=== PATIENT | male | born 1980 | race African-American/Black ===

== ENCOUNTER 2019-01-22 02:49 | Emergency (ER) | payer OTHER ==
[~2019-01-22] VITALS: Ht 165.1 cm; Wt 68.0 kg
--- NOTE | 2019-01-22 02:55 | NUR ---
ED Nurse Note: pt brought in by [facility] from [facility], c/c etoh, pt currently intoxicated, slurred speech, demonstrating aggressive behavior such as grabbing nurse's clothes and stating "fuck you". vss, resp even and unlabored on RA, will cont monitor.
--- NOTE | 2019-01-22 03:10 | NUR ---
ED Nurse Note: pt sleeping at this time, pillow and extra warm blanket provided for comfort, will cont monitor, safety precaution in place.
--- NOTE | 2019-01-22 03:13 | Emergency Room Report ---
History of Present Illness General Chief Complaint: Alcohol Intoxication Source: EMS, Law Enforcement Present Illness HPI This a 38-year-old male brought in by EMS for alcohol intoxication. He was outside his car on the ground very intoxicated. He was brought here for chief complaint of alcohol intoxication. No trauma. Unable to get any history from this patient. Allergies: Coded Allergies: No Known Allergies (Unverified , 01/22/19) Patient History Past Medical History: see triage record, old chart reviewed, unable to obtain Past Surgical History: unable to obtain Pertinent Family History: unable to obtain Social History: Reports: alcohol use Immunizations: other Reviewed Nursing Documentation: PMH: Agreed; PSxH: Agreed Nursing Documentation-PMH Past Medical History: No Stated History Review of Systems All Other Systems: limited - Secondary to intoxication Physical Exam Vital Signs Date Time Temp Pulse Resp B/P (MAP) Pulse Ox O2 Delivery O2 Flow Rate FiO2 01/22/19 02:45 98.6 96 18 116/72 (87) 97 Room Air Vitals normal Sp02 EP Interpretation: reviewed, normal General Appearance: well appearing, no apparent distress, other - Intoxicated Head: normocephalic, atraumatic Eyes: bilateral eye PERRL, bilateral eye EOMI ENT: hearing grossly normal, normal pharynx Neck: full range of motion, supple, no meningismus Respiratory: chest non-tender, lungs clear, normal breath sounds Cardiovascular #1: regular rate, rhythm, no murmur Gastrointestinal: normal bowel sounds, non tender, no mass, no organomegaly, no bruit, non-distended Musculoskeletal: back normal Neurologic: grossly normal Psychiatric: mood/affect normal Medical Decision Making Diagnostic Impression: Primary Impression: Acute alcoholic intoxication Qualified Codes: F10.920 - Alcohol use, unspecified with intoxication, uncomplicated ER Course Patient with alcohol intoxication. No trauma to warrant x-ray or CT scan. Patient is not homeless. Will observe until clinical sobriety. Last Vital Signs Date Time Temp Pulse Resp B/P (MAP) Pulse Ox O2 Delivery O2 Flow Rate FiO2 01/22/19 02:45 98.6 96 18 116/72 (87) 97 Room Air Status: improved Disposition: HOME, SELF-CARE Condition: Stable Patient Instructions: Alcohol Intoxication, [id number] Additional Instructions: Follow-up with your doctor in 7 days. Return if worse. Abstain from alcohol. Ryne Howe MD Jan 22, 2019 03:13
[2019-01-22 03:34] VITALS: BP 116/72
--- NOTE | 2019-01-22 05:00 | NUR ---
ED Nurse Note: pt awake, AA&ox4, pt given water and chips, verified w/ ERMD. no nausea nor vomiting reported. pt states he needs to sleep more. noted slurred speech and pt unable to stay awake for prolonged time, pt given extra blanket, will cont monitor.
--- NOTE | 2019-01-22 07:03 | NUR ---
HAND-OFF: Report given to CAITIE Earl and endorsed care. pt sleeping at this time, vss. safety precautions in place.
--- NOTE | 2019-01-22 07:14 | NUR ---
ED Nurse Note: PT AWAKE AND ANSWERING QUESTIONS APPROPRIATLY. AOX4. PT AMBULATED TO RESTROOM INDEPENDENTLY WITH STEADY GAIT. DISCHARGE PAPERWORK EXPLAINED TO PT. PT VERBALIZES UNDERSTANDING AND ALL QUESTIONS ANSWERED. DISCHARGE PAPERWORK GIVEN TO PT AND ID WRISTBAND REMOVED. PT WALKED OUT OF ER WITH STEADY GAIT AND ALL BELONGINGS.
[2019-01-22 07:15] VITALS: BP 122/76
--- NOTE | 2019-01-22 07:25 | NUR ---
ED Nurse Note: PT AMBULATED TO DISCHARGE DESK AND THEN REFUSED TO LEAVE STATING, "I'M TIRED." PT REMAINS AOX4, AWAKE, WITH STEADY GAIT. SECURITY CALLED FOR ASSISTANCE.
--- NOTE | 2019-01-22 07:30 | NUR ---
ED Nurse Note: SECURITY AT PT'S SIDE TO ASSIST WITH DISCHARGE. PT BECOMING AGGRESSIVE AND YELLING. PT STILL REFUSES TO LEAVE AND DEMANDING WE LET HIM SLEEP. PT INFORMED ONCE AGAIN THAT HE IS CLEAR FOR DISCHARGE AND THAT HE CANNOT JUST SLEEP HERE. ADDRESS REQUESTED SO TRANSPORTATION CAN BE PROVIDED FOR PT. PT UNCOOPERATIVE.
--- NOTE | 2019-01-22 07:34 | NUR ---
ED Nurse Note: PT'S FATHER CALLED TO SEE IF PT CAN BE DISCHARGED TO FATHER'S HOME IF TAXI VOUCHER IS PROVIDED.
--- NOTE | 2019-01-22 07:40 | NUR ---
ED Nurse Note: NURSING ANODE MACHINE OPERATOR AT PT'S SIDE SPEAKING WITH PT'S PARENT TO FIGURE OUT DISCHARGE PLAN. PT REMAINS IN ER SITTING ON CHAIR IN HALLWAY.
--- NOTE | 2019-01-22 07:45 | NUR ---
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
--- NOTE | 2019-01-22 08:03 | NUR ---
ED Nurse Note: PT'S MOTHER CONTACTED. 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
--- NOTE | 2019-01-22 08:51 | NUR ---
ED Nurse Note: PT'S FATHER HERE TO BEATER DUMPER PT. PT WALKED OUT OF ER WITH STEADY GAIT AND ALL BELONGINGS ACCOMPANIED BY FATHER.
== END 2019-01-22 07:16 | disposition home or self-care (01) ==
LOC: EDBD 02:49 → EMR 03:38
DX: F10.129 Alcohol abuse with intoxication, unspecified (principal)
CPT/HCPCS: 99281